=== PATIENT | male | born 1955 | race Caucasian/White ===

== ENCOUNTER 2017-10-07 14:30 | Inpatient (IN) | payer OTHER, BC ==
[~2017-10-07] VITALS: Ht 188 cm; Wt 104.4 kg
[~2017-10-07 14:30] MED LIST: ALLEGRA D PO; AMITRIPTYLINE H10 MG PO; ASPIR 8181 M1 PO; ASPIRIN E.C.81 M1 PO; ATORVASTATIN CA20 MG PO; AVINza PO; B COMPLETE1 EACH PO; B-COMPLEX PLUS1 EACH PO; BACLOFEN10 MG PO; BACTERICIN30 GM TP; CELEXA20 MG PO; CO Q-1010 MG PO; ENDOCET 5-3251 EACH PO; ERGOCALCIF50000 UNIT PO; FAMCICLOVIR500 MG PO; FLONASE16 G1 BOTH NARES; FOLIC ACID1 MG PO; GLUCOMETER MC; KLONOPIN0.5 M1 PO; LANCETS1 EACH MC; LEVOFLOXACIN500 MG PO; LIPITOR80 MG PO; LIQUITEARS BOTH EYES; LORATADINE10 M2 PO; LYRICA75 MG PO; Lopressor PO; METFORMIN HCL500 MG PO; METHOCARBAMOL750 MG PO; MIRALAX17 GM PO; MIRALAX255 GM PO; MUCINEX600 MG PO; NEUPRO1 EAC3 TD; NEURONTIN400 MG PO; NIZORAL 2% CREA15 GM TP; NORVASC5 MG PO; OMEPRAZOLE20 MG PO; PAROEX473 ML MM; PREDNISONE10 MG PO; PREDNISONE20 MG PO; PROAIR HFA8.5 GM IH; PROVENTIL,2.5 MG/0.5 AEROSOL; Prevacid PO; SALINE NASAL SP45 ML BOTH NARES; SULFAZINE500 MG PO; SYMBICORT60 INHALAT IH; TAMSULOSIN HCL0.4 MG PO; TEMOVATE 0.05%15 G1 TP; TEST STRIPS MC; TYLENOL WITH C1 EACH PO; VALIUM10 MG PO; VALSARTAN-HCTZ1 EAC1 PO; VITAMIN D5000 INTUN PO; ZADITOR 0.100 DROP/5 BOTH EYES; ZANTAC150 MG PO; ZITHROMAX500 MG PO; oxyCODONE PO
[2017-10-07 15:51] LABS: BASOPHIL (%) 0.8 % (0-1); BASOPHIL COUNT 0.1 K/uL (0-0.1); EOSINOPHIL (%) 1.4 % (0-5); EOSINOPHIL COUNT 0.1 K/uL (0-0.3); HEMATOCRIT 41.5 % (38.0-50.0); HEMOGLOBIN 14.8 G/DL (12.5-16.6); IMMATURE GRANULOCYTE (%) 0.4 % (0.0-0.7); LYMPHOCYTE (%) 16.2 % (15-42); LYMPHOCYTE COUNT 1.4 K/uL (1.0-2.8); MCH 33.5 PG (29.0-34.0); MCHC 35.7 G/DL (30.0-36.0); MCV 93.9 FL (86-99); MONOCYTE (%) 11.6 % (3-12); NEUTROPHIL (%) 69.6 % (45-76); PLATELET COUNT 230 K/uL (156-360); RBC DIS.WIDTH-CV 11.8 % (11.8-14.6); RBC DIS.WIDTH-SD 40.5 % (39-53); RED BLOOD COUNT 4.42 M/uL (4.00-5.50); WHITE BLOOD COUNT 8.6 K/uL (4.1-10.2)
[2017-10-07 16:01] LABS: ALBUMIN 4.4 g/dL (3.2-4.8); CHLORIDE 102 mEq/L (99-109); POTASSIUM 4.3 mEq/L (3.7-5.4); SODIUM 135 mEq/L (136-147)
[2017-10-07 16:02] LABS: MAGNESIUM 2.1 mg/dL (1.3-2.7)
[2017-10-07 16:03] LABS: GLUCOSE 92 mg/dL (70-99)
[2017-10-07 16:04] LABS: TOTAL PROTEIN 8.2 g/dL (6.4-8.3)
[2017-10-07 16:05] LABS: TOTAL BILIRUBIN 0.8 mg/dL (0.0-1.0)
[2017-10-07 16:07] LABS: ALKALINE PHOSPHATASE 52 IU/L (3-129); CREATININE 1.3 mg/dL (0.6-1.3); GFR ESTIMATE (CALCULATED) > 59 mL/min/ (58.99-99999)
[2017-10-07 16:08] LABS: UREA NITROGEN (BUN) 18 mg/dL (9-23)
[2017-10-07 16:09] LABS: AST (GOT) 32 IU/L (2-34)
[2017-10-07 16:10] LABS: ALT (GPT) 27 IU/L (3-49)
[2017-10-07 16:23] LABS: ERTH.SED.RATE 20 MM/HR (0-20)
[2017-10-07 16:43] LABS: C-REACTIVE PROTEIN 4.5 MG/L (0-10)
[2017-10-07 19:02] LABS: TROP-I INTERPRETATION NEGATIVE; TROPONIN-I < 0.01 ng/mL (0.0-0.30)
[2017-10-07] MEDS ORDERED: ALBUTEROL2.5 MG/3 M IH (20:29)
[2017-10-07] MEDS ORDERED: PROAIR RESPICL90 MCG IH (20:32)
[2017-10-07] MEDS ORDERED: ALLEGRA60 MG PO (20:33)
[2017-10-07] MEDS ORDERED: ARTIFICIAL TEAR15 M1 BOTH EYES (21:03)
[2017-10-07] MEDS ORDERED: BACLOFEN10 MG PO (21:04)
[2017-10-07] MEDS ORDERED: SYMBICORT60 INHALA1 IH (21:06)
[2017-10-07] MEDS ORDERED: ERGOCALCIF50000 UNIT PO (21:07)
[2017-10-07] MEDS ORDERED: CLOBETASOL PROP60 GM TP (21:08)
[2017-10-07] MEDS ORDERED: DRONABINOL5 MG PO (21:10)
[2017-10-07] MEDS ORDERED: ECONAZOLE NITRA15 GM TP (21:12)
[2017-10-07] MEDS ORDERED: FLONASE16 G1 BOTH NARES (21:14)
[2017-10-07] MEDS ORDERED: GABAPENTIN300 MG PO (21:16)
[2017-10-07] MEDS ORDERED: RANITIDINE HCL150 M1 PO (21:17)
[2017-10-07] MEDS ORDERED: OMEPRAZOLE20 MG PO (21:19)
[2017-10-07] MEDS ORDERED: NEUPRO1 EAC3 TD (21:20)
[2017-10-07] MEDS ORDERED: MUPIROCIN22 GM TP (21:21)
[2017-10-07] MEDS ORDERED: MORPHINE SULFAT30 M5 PO (21:22)
[2017-10-07] MEDS ORDERED: HYDROCHLOROTHIA25 MG PO (21:23)
[2017-10-07] MEDS ORDERED: ACIDOPHILUS1 EAC1 PO (21:25)
[2017-10-07] MEDS ORDERED: LIDOCAINE HCL20 ML MM (21:26)
[2017-10-07] MEDS ORDERED: KETOCONAZOLE60 GM TP (21:29)
[2017-10-07] MEDS ORDERED: ALAWAY10 ML BOTH EYES (21:32)
[2017-10-07] MEDS ORDERED: METFORMIN HCL500 MG PO (21:33)
[2017-10-07 21:52] LABS: HEMOGLOBIN 13.5 G/DL (12.5-16.6); MCH 33.5 PG (29.0-34.0); MCHC 34.6 G/DL (30.0-36.0); MCV 96.8 FL (86-99); PLATELET COUNT 208 K/uL (156-360); RBC DIS.WIDTH-CV 12.1 % (11.8-14.6); RBC DIS.WIDTH-SD 43.2 % (39-53); RED BLOOD COUNT 4.03 M/uL (4.00-5.50); WHITE BLOOD COUNT 7.1 K/uL (4.1-10.2)
[2017-10-07 22:24] LABS: INTER. NORMALIZED RATIO 1.2
[2017-10-07 22:26] LABS: D-DIMER ELISA < 150.00 ng/mLDDU (<230); PTT 30.1 SEC (25-37)
[2017-10-07 22:27] VITALS: BP 131/64
[2017-10-08 00:16] LABS: HDL CHOLESTEROL 43 MG/DL (Desirable>=40); LDL CHOLESTEROL 182 mg/dL (Desirable<100); NON-HDL CHOLESTEROL 214 mg/dL (Desirable<160); TOTAL CHOLESTEROL 257 mg/dL (Desirable<200); TRIGLYCERIDES 160 MG/DL (Normal: <150)
[2017-10-08 03:31] VITALS: BP 121/63
[2017-10-08 06:22] LABS: TROP-I INTERPRETATION NEGATIVE; TROPONIN-I < 0.01 ng/mL (0.0-0.30)
[2017-10-08 07:01] VITALS: BP 124/63
[2017-10-08 07:11] LABS: BILIRUBIN NEGATIVE; BLOOD NEGATIVE; COLOR YELLOW ((YELLOW)); GLUCOSE (STRIP) NEGATIVE; KETONES NEGATIVE; LEUKOCYTES NEGATIVE; NITRITE NEGATIVE; PROTEIN (STRIP) NEGATIVE; SPECIFIC GRAVITY 1.016 (1.000-1.030); UROBILINOGEN 0.2 MG/DL (0.2-1.0)
[2017-10-08 07:13] LABS: Estimated Average Glucose 123 mg/dL (70-123); HEMOGLOBIN A1c (GLYCOHEMOGLOB) 5.9 % HGB (Below 5.7)
[2017-10-08 07:15] LABS: APPEARANCE CLEAR ((CLEAR)); UCUL ADDED? NO
[2017-10-08 08:46] LABS: FOLIC ACID (FOLATE) > 22.0 NG/ML (5.0-22.0)
[2017-10-08 11:01] VITALS: BP 127/60
[2017-10-08 13:59] LABS: TROP-I INTERPRETATION NEGATIVE; TROPONIN-I < 0.01 ng/mL (0.0-0.30)
[2017-10-08 15:02] VITALS: BP 133/62
[2017-10-08 19:39] VITALS: BP 155/71
[2017-10-09 00:17] VITALS: BP 122/59
[2017-10-09 04:24] VITALS: BP 159/74
[2017-10-09 07:29] VITALS: BP 155/76
[2017-10-09 15:25] VITALS: BP 152/71
== END 2017-10-09 17:54 | disposition home or self-care (01) | DRG 101 ==
LOC: EME → EDBD 14:30 → EME 14:30 → EDOF 20:44 → ENRESERV 20:45 → 5SOUTH 21:26
PROVIDERS: Emergency Medicine; Hospitalist
DX: R56.9 Unspecified convulsions (principal); E11.9 Type 2 diabetes mellitus without complications; I10 Essential (primary) hypertension; G89.29 Other chronic pain; M54.2 Cervicalgia; I25.10 Atherosclerotic heart disease of native coronary artery without angina pectoris; F32.9 Major depressive disorder, single episode, unspecified; F41.9 Anxiety disorder, unspecified; M54.9 Dorsalgia, unspecified; R73.03 Prediabetes; R29.810 Facial weakness; I65.29 Occlusion and stenosis of unspecified carotid artery; F41.8 Other specified anxiety disorders; G47.30 Sleep apnea, unspecified; Z87.891 Personal history of nicotine dependence; Z79.82 Long term (current) use of aspirin; Z79.84 Long term (current) use of oral hypoglycemic drugs; Z82.49 Family history of ischemic heart disease and other diseases of the circulatory system; Z86.73 Personal history of transient ischemic attack (TIA), and cerebral infarction without residual deficits; Z83.3 Family history of diabetes mellitus; Z79.51 Long term (current) use of inhaled steroids; Z79.899 Other long term (current) drug therapy; Z87.442 Personal history of urinary calculi; L08.9 Local infection of the skin and subcutaneous tissue, unspecified
CPT/HCPCS: 70450; 70551; 71010; 80053; 80061; 81003; 82607; 82746; 82948; 83036; 83735; 84484; 85025; 85027; 85379; 85610; 85651; 85730; 86140; 87040; 93005; 93880; 94640; 94640 76; 94799; 95819; 99202; 99281; 99285; J1650; J1815; J2060; J2270; J2405; J7030; Q0167

== ENCOUNTER 2017-10-20 13:11 | Emergency (ER) | payer OTHER, BC ==
[~2017-10-20] VITALS: Ht 188 cm; Wt 106.2 kg
[~2017-10-20 13:11] MED LIST changes: +ACIDOPHILUS1 EAC1 PO; +ALAWAY10 ML BOTH EYES; +ALBUTEROL2.5 MG/3 M IH; +ALLEGRA60 MG PO; +ARTIFICIAL TEAR15 M1 BOTH EYES; +CLOBETASOL PROP60 GM TP; +DRONABINOL5 MG PO; +ECONAZOLE NITRA15 GM TP; +GABAPENTIN300 MG PO; +HYDROCHLOROTHIA25 MG PO; +KETOCONAZOLE60 GM TP; +LIDOCAINE HCL20 ML MM; +MORPHINE SULFAT30 M5 PO; +MUPIROCIN22 GM TP; +PROAIR RESPICL90 MCG IH; +RANITIDINE HCL150 M1 PO; +SYMBICORT60 INHALA1 IH
[2017-10-20 13:14] VITALS: BP 114/85
== END 2017-10-20 14:05 | disposition left against medical advice (07) ==
LOC: EME 13:11
DX: J18.9 Pneumonia, unspecified organism (principal); Z53.21 Procedure and treatment not carried out due to patient leaving prior to being seen by health care provider
CPT/HCPCS: 80048; 85027

== ENCOUNTER → 2017-12-04 | Outpatient (CLI) | payer OTHER, BC | END | disposition home or self-care (01) | LOC: RAD 13:27 | PROC: 3E0R3KZ Introduction of Other Diagnostic Substance into Spinal Canal, Percutaneous Approach (ICD-10-PCS; principal; 2017-12-04) | DX: M48.07 Spinal stenosis, lumbosacral region (principal); M47.897 Other spondylosis, lumbosacral region; I71.4 Abdominal aortic aneurysm, without rupture; M85.80 Other specified disorders of bone density and structure, unspecified site; Z98.1 Arthrodesis status | CPT/HCPCS: 62304; 72132 ==